=== PATIENT | female | born 1995 | race Hispanic/Latino ===

== ENCOUNTER 2019-08-04 03:18 | Inpatient (IN) | payer MEDICARE, MEDICAID ==
[~2019-08-04] VITALS: Ht 157.5 cm; Wt 75.3 kg
[2019-08-04] MEDS ORDERED: PREN-196 PO (03:31)
[2019-08-04] MEDS ORDERED: MAGNESIUM 4GM PREMIX 100ML 100 ML IV ONE (04:01)
[2019-08-04] MEDS ORDERED: AMPICILLIN 2GM+NS 100ML 100 ML IV ONE (04:01)
[2019-08-04] MEDS ORDERED: MAGNESIUM SULFATE 1,000 ML IV ONE (04:02)
[2019-08-04] MEDS ORDERED: LACTATED RINGERS 1000ML 1,000 ML IV PRN (04:03)
[2019-08-04 04:12] LABS: HEMATOCRIT 34.5 % (36-48); MEAN CORPUSCULAR HEMOGLOBIN 30.9 pg (27.0-33.0); MEAN CORPUSCULAR HGB CONC 34.2 g/dL (32.0-36.0); MEAN CORPUSCULAR VOLUME 90.3 fL (79-99); RED BLOOD CELL COUNT(AUTO) 3.82 MIL/uL (4.00-5.50); RED CELL DISTRIBUTION WIDTH 12.4 % (11.0-15.5); WHITE BLOOD COUNT (AUTO) 12.4 K/uL (4.8-10.8)
[2019-08-04 04:57] LABS: APPEARANCE,URINE Clear (CLEAR); BILIRUBIN,URINE Negative (NEGATIVE); COLOR,URINE Yellow (YELLOW); GLUCOSE, URINE (UA) Negative (NEGATIVE); KETONES,URINE Negative (NEGATIVE); LEUKOCYTE ESTERASE ,URINE Negative (NEGATIVE); NITRATE,URINE Negative (NEGATIVE); OCCULT BLOOD,URINE Negative (NEGATIVE); PROTEIN,URINE Negative (NEGATIVE); UROBILINOGEN,URINE 0.2 mg/dL (0.2-1.0)
[2019-08-04 05:06] LABS: AMPHET/METH SCREEN,URINE NEGATIVE (NEGATIVE); BARBITURATE SCREEN, URINE NEGATIVE (NEGATIVE); BENZODIAZEPINES SCREEN,URINE NEGATIVE (NEGATIVE); CANNABINOID SCREEN,URINE NEGATIVE (NEGATIVE); COCAINE SCREEN,URINE NEGATIVE (NEGATIVE); OPIATE SCREEN,URINE NEGATIVE (NEGATIVE); PHENCYCLIDINE SCREEN,URINE NEGATIVE (NEGATIVE)
[2019-08-04] MEDS ORDERED: MAGNESIUM SULFATE 1,000 ML IV PRN (05:12)
[2019-08-04] MEDS ORDERED: CALCIUM GLUCONATE 1 GM/10 ML VIAL IV PRN (05:15)
[2019-08-04] MEDS ORDERED: MEPERIDINE-PF 50 MG/ML SYG IVP ONE (05:15)
[2019-08-04] MEDS ORDERED: PROMETHAZINE HCL 25 MG/ML 1ML AMPULE IM SCH (05:15)
[2019-08-04] MEDS ORDERED: AMPICILLIN 2GM+NS 100ML 100 ML IV SCH (05:15)
[2019-08-04] MEDS ORDERED: MAGNESIUM 4GM PREMIX 100ML 100 ML IV SCH (05:15)
[2019-08-04] MEDS ORDERED: MEPERIDINE-PF 50 MG/ML SYG ONE (05:19)
[2019-08-04] MEDS ORDERED: OXYTOCIN-LR 20 UNITS/1000 ML 1,000 ML IV ONE (05:51)
[2019-08-04] MEDS ORDERED: ACETAMINOPHEN 325 MG TAB PO PRN (06:45)
[2019-08-04] MEDS ORDERED: WITCH HAZEL 1 PAD TP PRN (06:45)
[2019-08-04] MEDS ORDERED: LANOLIN 30GM OINTMENT TP PRN (06:45)
[2019-08-04] MEDS ORDERED: BENZOCAINE/LANOLIN/ALOE VERA 60 ML AEROSOL TP PRN (06:45)
[2019-08-04] MEDS ORDERED: ACETAMINOPHEN-CODEINE 300/30MG TAB PO PRN (06:45)
[2019-08-04] MEDS ORDERED: IBUPROFEN 600 MG TABLET PO PRN (06:45)
[2019-08-04 08:56] LABS: RAPID PLASMA REAGIN NONREACTIVE (NONREACTIVE)
[2019-08-04] MEDS ORDERED: DOCUSATE SODIUM 100 MG CAP PO SCH (09:00)
[2019-08-04 09:20] VITALS: BP 112/71
--- NOTE | 2019-08-04 10:57 | NUR ---
EMOTIONAL SUPPORT SW met with pt and . Pt emotional, grieving appropriately. This were first children for couple. Couple has already made arrangements with [facility] and will meet with them after dc for service arrangements. Couple live with his father and step mother and state they have good family support. Pt denied need for resources at this time. Sw provided emotional support.
[2019-08-04 11:31] VITALS: BP 116/79
--- NOTE | 2019-08-04 13:35 | NUR ---
verbal and written discharge instructions given, informed of the follow up appointment, all questions answered, informed to call the doctor for future concerns, pt voiced understanding to all things discussed Addendum: 08/04/19 at 1348 by JOSE EDUARDO ASHER RN Amended: Links added.
--- NOTE | 2019-08-04 13:48 | NUR ---
pt is dismissed in stable condition, brought to private car via wheelchair by olga. mello -pcp Addendum: 08/04/19 at 1349 by JOSE EDUARDO ASHER RN Amended: Links added.
[2019-08-05 08:11] LABS: HEPATITIS Bs ANTIGEN SCREEN P Negative (Negative)
== END 2019-08-04 13:50 | disposition home or self-care (01) | DRG 807 ==
LOC: EDH 03:18 → UNDOADMOB 03:19 → LDH 03:19 → OBSVTOIN 03:20 → WSH 09:20
PROVIDERS: ADMIT Obstetrics & Gynecology; ATTEND Obstetrics & Gynecology
PROC: 10E0XZZ Delivery of Products of Conception, External Approach (ICD-10-PCS; principal; 2019-08-04)
DX: O60.12X0 Preterm labor second trimester with preterm delivery second trimester, not applicable or unspecified (principal); Z37.2 Twins, both liveborn; O30.002 Twin pregnancy, unspecified number of placenta and unspecified number of amniotic sacs, second trimester; O32.1XX2 Maternal care for breech presentation, fetus 2; Z3A.21 21 weeks gestation of pregnancy
CPT/HCPCS: 36415; 76810; 80305; 81003; 85027; 86592; 86701; 86850; 86900; 86901; 87070; 87076; 87340; 87390; A4314; G0378; J0290; J2175; J2590; J3475